=== PATIENT | male | born 1940 | race Two or more races ===

== ENCOUNTER 2017-01-28 20:30 | Inpatient (IN) | payer OTHER, MEDICAID ==
[~2017-01-28] VITALS: Ht 170.2 cm; Wt 65.3 kg
[~2017-01-28 20:30] MED LIST: DOCU100T15 PO; FURO20TA3 PO; IBUP200C3 PO; POTA10TA51 PO
[2017-01-28 21:41] LABS: Basophils # (auto) 0 uL; Basophils % (auto) 0.1 % (0.0-2.0); Eosinophils # (auto) 0 uL; Eosinophils % (auto) 0.5 % (0.0-7.0); Hematocrit 41.3 % (41.0-53.0); Hemoglobin 13.6 g/dL (13.5-17.5); Lymphocytes # (auto) 0.7 uL; Lymphocytes % (auto) 11.2 % (10.0-50.0); Mean Corpuscular Hemoglobin 31.6 pg (28.0-32.0); Mean Corpuscular Hgb Conc. 33.1 g/dL (32.0-36.0); Mean Corpuscular Volume 95.5 fL (80.0-100.0); Mean Platelet Volume 9.3 fL (7.4-10.4); Monocytes # (auto) 1.1 uL; Monocytes % (auto) 16.3 % (0.0-12.0); Neutrophils # (auto) 4.7 uL; Neutrophils % (auto) 71.9 % (37.0-80.0); Platelet Count (auto) 127 10^3/uL (140-450); Red Cell Distribution Width 14.8 % (11.6-16.0); White Blood Cell 6.5 10^3/uL (4.4-10.8)
[2017-01-28 22:01] LABS: Partial Thromboplastin Time 34.5 sec (22.64-33.71)
[2017-01-28 22:06] LABS: Albumin 2.3 g/dL (3.4-5.0); Alkaline Phosphatase 170 U/L (45-117); Anion Gap 11 (5-15); Aspartate Aminotransferase 44 U/L (15-37); BUN/Creatinine Ratio 16.7; Bilirubin, Total 3.4 mg/dL (0.2-1.0); Blood Urea Nitrogen 20 mg/dL (7-18); Calcium 7.7 mg/dL (8.5-10.1); Carbon Dioxide 22 mmol/L (21-32); Chloride 108 mmol/L (98-107); GFR African American 76 mL/min; GFR Non-African American 62 mL/min; Glucose 150 mg/dL (74-106); Potassium 3.8 mmol/L (3.5-5.1); Sodium 141 mmol/L (136-145); Total Protein 7.5 g/dL (6.4-8.2)
[2017-01-28 22:08] LABS: INR 1.48 (0.9-1.15)
[2017-01-28] MEDS ORDERED: cefTRIAXone 1GM/50ML D5W 50 ML IV ONE (23:30)
[2017-01-28] MEDS ORDERED: SODIUM CHLORIDE 0.9% 500 ML IV ONE (23:30)
[2017-01-28] MEDS ORDERED: IOHEXOL 350 MG/ML 100ML IJ ONE (23:31)
[2017-01-29] MEDS ORDERED: ASPirin 81 mg TAB PO ONE (03:45)
[2017-01-29] MEDS ORDERED: NITROGLYCERIN 0.4 MG SL TAB SL PRN (05:15)
[2017-01-29] MEDS ORDERED: MORPHINE SULF INJ 2 MG/ML SYRINGE 1ML IV PRN (05:15)
[2017-01-29] MEDS ORDERED: DOCUSATE SOD 100 MG CAP PO PRN (05:15)
[2017-01-29] MEDS ORDERED: TEMAZEPAM 15 MG CAP PO PRN (05:15)
[2017-01-29] MEDS ORDERED: ONDANSETRON HCL 4 MG/2 ML VIAL IV PRN (05:15)
[2017-01-29] MEDS: SODIUM CHLOR 0.9% PF (SALINE LOCK) 10ML VIAL IV SCH ×2 (06:10→14:00)
[2017-01-29 06:52] VITALS: BP 104/58
[2017-01-29 08:46] VITALS: BP 104/58
[2017-01-29] MEDS: FUROSEMIDE 20 MG TAB PO SCH (10:44)
[2017-01-29] MEDS ORDERED: AZITHROMYCIN 250 MG TAB PO ONE (11:30)
[2017-01-29] MEDS ORDERED: cefTRIAXone 1GM/50ML D5W 50 ML IV ONE (11:30)
[2017-01-29] MEDS: IPRATROPIUM BROM 0.5 MG/2.5ML INH SOL NEB SCH ×2 (12:00→19:57)
[2017-01-29] MEDS: ALBUTEROL SULF 2.5 MG/0.5ML(0.5%) NEB SOLN NEB SCH ×2 (12:00→19:57)
[2017-01-29 12:36] VITALS: BP 110/65
[2017-01-29] MEDS: MORPHINE SULF INJ 2 MG/ML SYRINGE 1ML IV PRN (16:09)
[2017-01-29 16:48] VITALS: BP 131/70
[2017-01-29 21:55] VITALS: BP 117/73
[2017-01-30] MEDS: IPRATROPIUM BROM 0.5 MG/2.5ML INH SOL NEB SCH ×4 (01:02→18:21)
[2017-01-30] MEDS: ALBUTEROL SULF 2.5 MG/0.5ML(0.5%) NEB SOLN NEB SCH ×4 (01:02→18:21)
[2017-01-30 05:00] VITALS: BP 140/78
[2017-01-30] MEDS: SODIUM CHLOR 0.9% PF (SALINE LOCK) 10ML VIAL IV SCH ×4 (06:00→22:23)
[2017-01-30 08:00] VITALS: BP 123/71
[2017-01-30] MEDS: cefTRIAXone 1GM/50ML D5W 50 ML IV SCH (09:10)
[2017-01-30] MEDS: AZITHROMYCIN 250 MG TAB PO SCH (09:20)
[2017-01-30] MEDS: FUROSEMIDE 20 MG TAB PO SCH (09:20)
[2017-01-30 12:52] VITALS: BP 126/67
[2017-01-30] MEDS ORDERED: methylPREDNISolone SOD SUCC 40 MG/ML VL IV ONE (14:30)
[2017-01-30 18:00] VITALS: BP 129/68
[2017-01-30 19:44] LABS: Urine Bilirubin Negative (Negative); Urine Color Yellow (Yellow); Urine Glucose Normal (Normal); Urine Ketone Negative (Negative); Urine Nitrite Negative (Negative); Urine RBC 15 /hpf (0 - 3); Urine Squamous Epithelial Cell FEW /hpf (<5)
[2017-01-30 19:47] LABS: Urine Blood 2+ /uL (Negative)
[2017-01-30 22:00] VITALS: BP 127/74
[2017-01-30] MEDS: MORPHINE SULF INJ 2 MG/ML SYRINGE 1ML IV PRN (22:23)
[2017-01-30] MEDS: methylPREDNISolone SOD SUCC 40 MG/ML VL IV SCH (22:23)
[2017-01-31 05:00] VITALS: BP 144/87
[2017-01-31] MEDS: SODIUM CHLOR 0.9% PF (SALINE LOCK) 10ML VIAL IV SCH ×2 (06:06→14:20)
[2017-01-31] MEDS: ALBUTEROL SULF 2.5 MG/0.5ML(0.5%) NEB SOLN NEB SCH ×2 (07:21→12:00)
[2017-01-31] MEDS: IPRATROPIUM BROM 0.5 MG/2.5ML INH SOL NEB SCH ×2 (07:21→12:00)
[2017-01-31] MEDS: cefTRIAXone 1GM/50ML D5W 50 ML IV SCH (09:17)
[2017-01-31] MEDS: methylPREDNISolone SOD SUCC 40 MG/ML VL IV SCH (09:17)
[2017-01-31] MEDS: FUROSEMIDE 20 MG TAB PO SCH (09:19)
[2017-01-31] MEDS: AZITHROMYCIN 250 MG TAB PO SCH (09:19)
[2017-01-31 10:38] VITALS: BP 109/73
[2017-01-31 13:00] VITALS: BP 108/70
[2017-01-31 13:36] VITALS: BP 108/70
== END 2017-01-31 16:30 | disposition home or self-care (01) | DRG 190 ==
LOC: ER 20:37 → WEST WING 20:38 → TELE-WESTW 01-30 13:22
PROVIDERS: ADMIT Emergency Medicine; ATTEND Internal Medicine
DX: J44.0 Chronic obstructive pulmonary disease with (acute) lower respiratory infection (principal); J96.00 Acute respiratory failure, unspecified whether with hypoxia or hypercapnia; J18.9 Pneumonia, unspecified organism; I50.42 Chronic combined systolic (congestive) and diastolic (congestive) heart failure; E44.0 Moderate protein-calorie malnutrition; C78.00 Secondary malignant neoplasm of unspecified lung; R18.8 Other ascites; K76.6 Portal hypertension; C78.7 Secondary malignant neoplasm of liver and intrahepatic bile duct; J44.1 Chronic obstructive pulmonary disease with (acute) exacerbation; R07.9 Chest pain, unspecified; B19.20 Unspecified viral hepatitis C without hepatic coma; F03.90 Unspecified dementia, unspecified severity, without behavioral disturbance, psychotic disturbance, mood disturbance, and anxiety; K74.60 Unspecified cirrhosis of liver; Z85.038 Personal history of other malignant neoplasm of large intestine; Z80.1 Family history of malignant neoplasm of trachea, bronchus and lung; Z90.49 Acquired absence of other specified parts of digestive tract; Z92.21 Personal history of antineoplastic chemotherapy; Z68.22 Body mass index [BMI] 22.0-22.9, adult
CPT/HCPCS: 36415; 36600; 71010; 71250; 71275; 74176; 80053; 80074; 81001; 82378; 82805; 83880; 84484; 85025; 85379; 85610; 85730; 93005; 93306; 94640; 94761; 96365; J0696

== ENCOUNTER 2018-05-27 05:31 | Inpatient (IN) | payer OTHER, MEDICAID ==
[~2018-05-27] VITALS: Ht 177.8 cm; Wt 65.9 kg
[2018-05-27 08:48] LABS: Albumin 1.9 g/dL (3.4-5.0); BUN/Creatinine Ratio 22.3; Bilirubin, Total 1.3 mg/dL (0.2-1.0); Potassium 4.7 mmol/L (3.5-5.1); Total Protein 7.5 g/dL (6.4-8.2)
[2018-05-27 08:50] LABS: INR 1.87 (0.9-1.15); Partial Thromboplastin Time 34.1 sec (23.78-33.04); Prothrombin Time 19.3 sec (9.27-12.13)
[2018-05-27 09:05] LABS: Basophils # (auto) 0 uL; Basophils % (auto) 0.4 % (0.0-2.0); Eosinophils # (auto) 0.4 uL; Eosinophils % (auto) 4.5 % (0.0-7.0); Hematocrit 30.4 % (41.0-53.0); Hemoglobin 10.4 g/dL (13.5-17.5); Lymphocytes # (auto) 1.2 uL; Mean Corpuscular Hemoglobin 31.3 pg (28.0-32.0); Mean Corpuscular Hgb Conc. 34.1 g/dL (32.0-36.0); Mean Corpuscular Volume 91.9 fL (80.0-100.0); Monocytes # (auto) 1.1 uL; Neutrophils # (auto) 6.8 uL; Neutrophils % (auto) 71.1 % (37.0-80.0); Nucleated Red Blood Cells % 0.2 %; Platelet Count (auto) 134 10^3/uL (140-450); Red Blood Cells 3.31 10^6/uL (4.5-5.90); Red Cell Distribution Width 16.6 % (11.8-14.3); White Blood Cell 9.6 10^3/uL (4.4-10.8)
[2018-05-27] MEDS ORDERED: DOCUSATE SOD 100 MG CAP PO PRN (12:15)
[2018-05-27] MEDS ORDERED: ACETAMINOPHEN 325 MG TAB PO PRN (12:15)
[2018-05-27] MEDS ORDERED: HYDROcodone-ACET 10/325MG TAB PO PRN (12:15)
[2018-05-27] MEDS: SODIUM CHLOR 0.9% PF (SALINE LOCK) 10ML VIAL/SYR IV SCH ×2 (14:03→22:50)
[2018-05-27] MEDS: Ensure Enlive Strawberry 8oz Bottle PO SCH ×2 (18:00→22:50)
[2018-05-27] MEDS: SPIRONOLACTONE 25 MG TAB PO SCH (18:21)
[2018-05-27 19:54] VITALS: BP 109/61
[2018-05-27 21:43] LABS: Hematocrit 29.4 % (41.0-53.0); Hemoglobin 9.9 g/dL (13.5-17.5)
[2018-05-27 21:49] VITALS: BP 109/61
[2018-05-27] MEDS: IBUPROFEN 600 MG TAB PO SCH (22:54)
[2018-05-28] MEDS: MORPHINE SULF INJ 2 MG/ML SYRINGE 1ML IV PRN ×2 (03:50→17:23)
[2018-05-28 04:50] VITALS: BP 92/47
[2018-05-28 05:48] LABS: Basophils # (auto) 0 uL; Basophils % (auto) 0.3 % (0.0-2.0); Eosinophils # (auto) 0.4 uL; Eosinophils % (auto) 4.1 % (0.0-7.0); Hematocrit 27.8 % (41.0-53.0); Hemoglobin 9.4 g/dL (13.5-17.5); Lymphocytes # (auto) 1.5 uL; Lymphocytes % (auto) 15.7 % (10.0-50.0); Mean Corpuscular Hemoglobin 31.1 pg (28.0-32.0); Mean Corpuscular Hgb Conc. 33.8 g/dL (32.0-36.0); Mean Corpuscular Volume 92.2 fL (80.0-100.0); Monocytes # (auto) 1.2 uL; Monocytes % (auto) 12.4 % (0.0-12.0); Neutrophils # (auto) 6.6 uL; Neutrophils % (auto) 67.5 % (37.0-80.0); Nucleated Red Blood Cells % 0.1 %; Platelet Count (auto) 136 10^3/uL (140-450); Red Blood Cells 3.02 10^6/uL (4.5-5.90); Red Cell Distribution Width 16.5 % (11.8-14.3); White Blood Cell 9.7 10^3/uL (4.4-10.8)
[2018-05-28 06:16] LABS: Albumin 1.8 g/dL (3.4-5.0); BUN/Creatinine Ratio 28.4; Calcium 7.9 mg/dL (8.5-10.1); Potassium 4.9 mmol/L (3.5-5.1)
[2018-05-28 06:19] LABS: Bilirubin, Total 1.5 mg/dL (0.2-1.0); Total Protein 6.8 g/dL (6.4-8.2)
[2018-05-28] MEDS: SPIRONOLACTONE 25 MG TAB PO SCH ×2 (06:30→17:23)
[2018-05-28] MEDS: SODIUM CHLOR 0.9% PF (SALINE LOCK) 10ML VIAL/SYR IV SCH ×3 (06:31→21:49)
[2018-05-28] MEDS: Ensure Enlive Strawberry 8oz Bottle PO SCH ×4 (06:31→21:50)
[2018-05-28 08:00] VITALS: BP 120/70
[2018-05-28 09:00] VITALS: BP 111/65
[2018-05-28] MEDS: IBUPROFEN 600 MG TAB PO SCH ×2 (10:54→21:50)
[2018-05-28] MEDS: MULTIPLE VITAMIN TAB PO SCH (10:54)
[2018-05-28 12:10] VITALS: BP 120/70
[2018-05-28 17:15] VITALS: BP 110/67
[2018-05-28 18:14] LABS: Hematocrit 29.5 % (41.0-53.0); Hemoglobin 9.8 g/dL (13.5-17.5)
[2018-05-28 22:17] VITALS: BP 121/64
[2018-05-29 05:03] VITALS: BP 116/67
[2018-05-29] MEDS: Ensure Enlive Strawberry 8oz Bottle PO SCH ×4 (06:00→22:00)
[2018-05-29] MEDS: SPIRONOLACTONE 25 MG TAB PO SCH ×2 (06:00→18:00)
[2018-05-29] MEDS: SODIUM CHLOR 0.9% PF (SALINE LOCK) 10ML VIAL/SYR IV SCH ×3 (06:17→22:17)
[2018-05-29 06:26] LABS: Basophils # (auto) 0 uL; Basophils % (auto) 0.5 % (0.0-2.0); Eosinophils # (auto) 0.5 uL; Hematocrit 27.2 % (41.0-53.0); Hemoglobin 9.3 g/dL (13.5-17.5); Lymphocytes # (auto) 1.1 uL; Lymphocytes % (auto) 11.6 % (10.0-50.0); Mean Corpuscular Hemoglobin 31.2 pg (28.0-32.0); Mean Corpuscular Hgb Conc. 34.1 g/dL (32.0-36.0); Mean Corpuscular Volume 91.5 fL (80.0-100.0); Monocytes # (auto) 1.2 uL; Neutrophils # (auto) 6.3 uL; Neutrophils % (auto) 68.9 % (37.0-80.0); Nucleated Red Blood Cells % 0.1 %; Platelet Count (auto) 128 10^3/uL (140-450); Red Blood Cells 2.98 10^6/uL (4.5-5.90); Red Cell Distribution Width 16.7 % (11.8-14.3); White Blood Cell 9.1 10^3/uL (4.4-10.8)
[2018-05-29 06:41] LABS: BUN/Creatinine Ratio 30.3; Calcium 7.8 mg/dL (8.5-10.1); Potassium 5.5 mmol/L (3.5-5.1)
[2018-05-29 09:41] VITALS: BP 98/60
[2018-05-29] MEDS: IBUPROFEN 600 MG TAB PO SCH ×2 (10:37→22:00)
[2018-05-29] MEDS: MULTIPLE VITAMIN TAB PO SCH (10:37)
[2018-05-29 12:11] VITALS: BP 99/54
[2018-05-29 17:19] VITALS: BP 86/48
[2018-05-29 20:00] VITALS: BP 84/45
[2018-05-29 21:54] VITALS: BP 84/45
[2018-05-30 04:37] VITALS: BP 90/39
[2018-05-30] MEDS: Ensure Enlive Strawberry 8oz Bottle PO SCH (06:00)
[2018-05-30] MEDS: SPIRONOLACTONE 25 MG TAB PO SCH (06:00)
[2018-05-30] MEDS: SODIUM CHLOR 0.9% PF (SALINE LOCK) 10ML VIAL/SYR IV SCH (06:13)
[2018-05-30 09:44] VITALS: BP 95/49
[2018-05-30] MEDS: IBUPROFEN 600 MG TAB PO SCH (10:00)
[2018-05-30] MEDS: MULTIPLE VITAMIN TAB PO SCH (10:00)
== END 2018-05-30 11:05 | disposition hospice, home (50) | DRG 435 ==
LOC: EDBD 05:31 → ER 05:38 → OVERFLOW 05:39 → EDUNIT# 05:39 → CENTRAL 19:47
PROVIDERS: ADMIT Internal Medicine; ATTEND Internal Medicine
DX: C78.7 Secondary malignant neoplasm of liver and intrahepatic bile duct (principal); E43 Unspecified severe protein-calorie malnutrition; C18.9 Malignant neoplasm of colon, unspecified; E87.1 Hypo-osmolality and hyponatremia; D68.9 Coagulation defect, unspecified; R18.8 Other ascites; E83.51 Hypocalcemia; N18.2 Chronic kidney disease, stage 2 (mild); D50.0 Iron deficiency anemia secondary to blood loss (chronic); D63.8 Anemia in other chronic diseases classified elsewhere; F03.90 Unspecified dementia, unspecified severity, without behavioral disturbance, psychotic disturbance, mood disturbance, and anxiety; F17.200 Nicotine dependence, unspecified, uncomplicated; Z51.5 Encounter for palliative care; Z66 Do not resuscitate; Z68.20 Body mass index [BMI] 20.0-20.9, adult
CPT/HCPCS: 36415; 74176; 80048; 80053; 85014; 85018; 85025; 85610; 85730; 93005